=== PATIENT | male | born 1955 | race Caucasian/White ===

== ENCOUNTER 2017-12-29 07:01 | Outpatient (CLI) | payer OTHER ==
--- NOTE | 2017-12-29 10:50 | MRI ---
MRI RIGHT SHOULDER WITHOUT CONTRAST: HISTORY: Fall. M25.511, right shoulder pain. COMPARISON: None. FINDINGS: The exam is limited due to motion artifact. BICEPS TENDON: Mild extraarticular biceps tendon fluid. There is moderate intraarticular tendinosis. Mild blunting of the free edge of the superior labrum. ROTATOR CUFF: There is a full-thickness rupture of the anterior 1 cm fibers of the supraspinatus tendon retracted t o the mid humeral head. Evaluation for size is limited due to severe internal rotation on this exami nation. There is extensive tendinosis and interstitial tearing of the infraspinatus tendon. Moderat e subacromial/subdeltoid bursal effusion. BONES: Type I acromion. Mild degenerative disease of acromioclavicular joint. Normal glenoid eversion. SOFT TISSUES: There is loss of normal subcoracoid fat. There is significant hypertrophy within the rotator interva l. The axillary pouch is mildly thickened. Some of this thickening could be sequelae of the interna l rotation. MUSCLES: Muscle bulk is normal. No significant atrophy. IMPRESSION: 1. Full-thickness tear of the anterior 1 cm fibrous supraspinatus tendon from the footplate retracte d to the mid humeral head. 2. Severe tendinosis and interstitial tearing of the remaining posterior fibers supraspinatus tendon as well as at the infraspinatus tendon. 3. No significant muscle atrophy. 4. Moderate intraarticular biceps tendinosis as well as mild volume loss and blunting of the free ed ge of the superior labrum. 5. Rotator interval synovitis as well as thickening of the axillary pouch and glenohumeral ligament suggesting capsulitis. POS: OFF
== END 2017-12-29 07:02 | disposition home or self-care (01) ==
LOC: MRI 07:01
PROVIDERS: ATTEND Orthopaedic Surgery
DX: M25.511 Pain in right shoulder (principal); M75.101 Unspecified rotator cuff tear or rupture of right shoulder, not specified as traumatic; M75.21 Bicipital tendinitis, right shoulder; M75.81 Other shoulder lesions, right shoulder

== ENCOUNTER 2018-01-04 08:24 | Outpatient (CLI) | payer OTHER ==
[2018-01-04 09:03] LABS: Hemoglobin 16.8 g/dL (14.0-18.0); Mean Corpuscular HGB CONC 33.8 g/dL (32.0-36.0); Mean Corpuscular Hemoglobin 31.9 pg (27.0-31.0); Mean Corpuscular Volume 94.4 fl (80.0-94.0); Mean Platelet Volume 8.8 fL (7.4-10.4); Platelet Count 222 thou/uL (130-400); RBC Distribution Width 11.9 % (11.5-14.5); Red Blood Cell (RBC) Count 5.25 mill/uL (4.70-6.10)
== END 2018-01-04 08:25 | disposition home or self-care (01) ==
LOC: LABBT 08:24
PROVIDERS: ATTEND Orthopaedic Surgery
DX: Z01.818 Encounter for other preprocedural examination (principal); M75.101 Unspecified rotator cuff tear or rupture of right shoulder, not specified as traumatic
CPT/HCPCS: 85027; 93005; 93010

== ENCOUNTER 2018-01-05 08:17 | Day surgery (SDC) | payer OTHER ==
[2018-01-04 09:06] VITALS: BMI 24.3
[2018-01-05] MEDS ORDERED: CEFAZOLIN/Water 2 GM/20 ML SYRINGE ONE (08:33)
[2018-01-05] MEDS ORDERED: Ropivacaine 0.2% HCl/PF 20 ML ONE (08:58)
[2018-01-05] MEDS ORDERED: Midazolam HCl 2 mg/2 ml Vial ONE (08:58)
[2018-01-05] MEDS ORDERED: Fentanyl 100 MCG/2 ML VIAL ONE ×3 (08:58→10:11)
[2018-01-05] MEDS ORDERED: Scopolamine 1.5 mg/72 hour Patch ONE (09:29)
[2018-01-05] MEDS ORDERED: Ropivacaine 0.2% 550 ML 550 ML NERVE BLCK SCH (09:34)
[2018-01-05] MEDS ORDERED: HYDROcodone/Acetaminophen 10/325 mg Tablet PO PRN ×2 (09:34)
[2018-01-05] MEDS ORDERED: Promethazine HCl 25 MG/ML VIAL IM PRN (09:34)
[2018-01-05] MEDS ORDERED: traMADol HCl 50 MG TAB PO PRN ×2 (09:34)
[2018-01-05] MEDS ORDERED: Zolpidem Tartrate 5 MG TAB PO PRN (09:34)
[2018-01-05] MEDS ORDERED: Ondansetron PF 4 MG/2 ML Vial IVP PRN (09:34)
[2018-01-05] MEDS ORDERED: Fentanyl 100 MCG/2 ML VIAL IV PRN (09:35)
[2018-01-05] MEDS ORDERED: Lidocaine 1% w/Epinephrine 1:200K 30 ML VIAL ONE (09:37)
[2018-01-05] MEDS ORDERED: Bupivacaine 0.25% HCL 30 ML VIAL ONE (09:37)
[2018-01-05] MEDS ORDERED: Ketorolac Tromethamine 30 MG/ML VIAL IVP SCH (12:00)
--- NOTE | 2018-01-05 13:19 | OP ---
DATE OF PROCEDURE: 01/05/2018 PREOPERATIVE DIAGNOSIS: Right full-thickness supraspinatus tear with a leading edge infraspinatus tear. PROCEDURE PERFORMED: Right rotator cuff repair, double row, transosseous equivalent. STAFF: Sheldon Subramanian M.D. OPTOMETRIST PRESIDENT/PRACTICE OWNER: Brayden Sumner ANESTHESIA: Anesthesia staff is Gagandeep. The patient received general endotracheal intubation with interscalene block. ESTIMATED BLOOD LOSS: Less than 30 mL. TOURNIQUET TIME: None. IMPLANTS: An Arthrex 5.5 corkscrew x2, Arthrex SwiveLock 4.75 x2. ANTIBIOTICS: Ancef. COMPLICATIONS: None. HISTORY OF PRESENT ILLNESS: Mr. Brittney Carter is a 62-year-old male who is right hand dominant [employer]. The patient had a sack carrying, had a pop in his shoulder on the 15th of last year. The patient had night pain. Pain was rated 8-10. The patient had a full thickness rotator cuff repair. I discussed with patient the risks and benefits of right arthroscopic rotator cuff repair with possible biceps tenotomy tenodesis, subacromial decompression. The patient understood the risks and benefits of procedure to include pain, scar, bleeding, infection, damage to vital structures, decreased range or strength, failure of repair, continued pain despite surgical intervention, loss of life. The patient understood the risks and benefits and elected to proceed. PROCEDURE IN DETAIL: Timeout was performed designating the patient's right upper extremity as the operative site based on sites, consents and markings. After timeout, the patient had posterior working intraoral portal placed. Intra -articularly the patient had some frayed edges of his labrum. He had what was a degenerative sublabral foramen with degenerative changes, but the biceps root was intact, biceps tenotomy fraying or damage and I left it in place. Subscap was in place. He had no full thickness cartilage defects to his humerus or glenoid. The patient did have a large full-thickness cuff tear which I debrided well as intraarticularly to create a footprint. I then moved subacromially. I then again debrided the rotator cuff repair, taking a bur to create bleeding bone. I cleaned off the acromion, decompressed the shoulder. I then placed a lateral working portal for my visualization, then I placed my cannula back through my anterior portal. I placed one more anterolateral aspect of the acromion to pass stitches as well as past anchor. I placed 2 anchors, I placed my anchor anteriorly, passed 4 horizontal mattress sutures then placed more posterior to the same, tied posterior to anterior. I took my limbs and did a double row equivalent repair laterally. I was overall pleased with the opposition. We then washed and closed with 3-0 nylon. The patient will follow postop protocol; elbow, wrist, and hand motion until follow up. I discussed what to do with his catheter, made him short of breath, just sleep upright in the bed. He will take hydrocodone and give Zofran for pain relief. TL
[2018-01-05] MEDS ORDERED: Ropivacaine 0.2% HCl/PF (40 MG/20 ML VIAL) ONE (14:42)
[2018-01-05] MEDS ORDERED: Ropivacaine 0.5% HCl/PF (150 MG/30 ML VIAL) ONE (14:42)
[2018-01-05] MEDS ORDERED: Ketorolac Tromethamine 30 MG/ML VIAL ONE (15:03)
[2018-01-05] MEDS ORDERED: ePHEDrine/0.9% NaCl/PF SYRINGE 50 mg/10 ml ONE (15:03)
[2018-01-05] MEDS ORDERED: Ondansetron PF 4 MG/2 ML Vial ONE (15:03)
[2018-01-05] MEDS ORDERED: PROPOFOL 200 MG/20 ML VIAL ONE (15:03)
[2018-01-05] MEDS ORDERED: Glycopyrrolate 0.2 MG/ML 5 ML SYRINGE ONE (15:03)
[2018-01-05] MEDS ORDERED: PHENYLEPHRINE-NS 100 MCG/ML 10 ML SYRINGE ONE (15:03)
== END 2018-01-05 14:10 | disposition home or self-care (01) ==
LOC: SDC 08:17
PROVIDERS: ATTEND Orthopaedic Surgery
PROC: 0LM14ZZ Reattachment of Right Shoulder Tendon, Percutaneous Endoscopic Approach (ICD-10-PCS; principal; 2018-01-05)
DX: M75.121 Complete rotator cuff tear or rupture of right shoulder, not specified as traumatic (principal); Z88.8 Allergy status to other drugs, medicaments and biological substances; Z90.79 Acquired absence of other genital organ(s); Z98.890 Other specified postprocedural states; Z82.62 Family history of osteoporosis
CPT/HCPCS: A4306; C1713; J1885; J2250; J2405; J2704; J2795; J3010; S0020

== ENCOUNTER 2018-01-08 11:23 | Emergency (ER) | payer OTHER ==
[2018-01-08] MEDS ORDERED: Ondansetron HCl/PF 4 MG/2 ML Vial ONE (11:41)
[2018-01-08 11:50] LABS: #Basophils 0.1 thou/uL (0.0-0.2); #Eosinphils 0.1 thou/uL (0.0-0.7); #Lymphocytes 0.5 thou/uL (1.20-3.40); #Monocytes 0.6 thou/uL (0.11-0.59); #Neutrophils 10.8 thou/uL (1.40-6.50); %Basophils 1.1 % (0.0-1.0); %Eosinophils 0.5 % (0.0-10.0); %Lymphocytes 4.4 % (21.0-51.0); %Monocytes 4.7 % (0.0-10.0); %Neutrophils 89.3 % (42.0-75.0); Hemoglobin 16.3 g/dL (14.0-18.0); Mean Corpuscular HGB CONC 34.3 g/dL (32.0-36.0); Mean Corpuscular Hemoglobin 32.7 pg (27.0-31.0); Mean Corpuscular Volume 95.5 fl (80.0-94.0); Mean Platelet Volume 8.2 fL (7.4-10.4); Platelet Count 229 thou/uL (130-400); Red Blood Cell (RBC) Count 4.98 mill/uL (4.70-6.10); White Blood Cell (WBC) Count 12.1 thou/uL (4.8-10.8)
[2018-01-08 12:08] LABS: ALT (SGPT) 16 U/L (8-55); AST (SGOT) 24 U/L (5-34); Albumin 4.4 g/dL (3.4-4.8); Alkaline Phosphatase 68 U/L (40-150); Anion Gap 13 mmol/L (10-20); BUN (Urea Nitrogen) 8 mg/dL (8.4-25.7); Bilirubin, Total 0.7 mg/dL (0.2-1.2); Calc. Creatinine Clearance 0 mL/min (70-130); Calcium 9.8 mg/dL (7.8-10.44); Carbon Dioxide 24 mmol/L (23-31); Chloride 102 mmol/L (98-107); Estimated GFR-MDRD 87; Globulin 3.2 g/dL (2.4-3.5); Glucose 95 mg/dL (80-115); Potassium 4.1 mmol/L (3.5-5.1); Protein, Total 7.6 g/dL (5.8-8.1); Sodium 135 mmol/L (136-145)
--- NOTE | 2018-01-08 14:45 | RAD ---
SINGLE VIEW OF THE CHEST TWO VIEWS ABDOMEN: Comparison: None. History: Nausea, vomiting, and constipation. Patient has not had a bowel movement in two days. FINDINGS: Supine and upright views of the abdomen and upright views of the chest shows a nonspecific, nonobstru cted bowel gas pattern. There is a small amount of stool in the right colon. Air is seen throughout t he colon. A nonobstructed bowel gas pattern is seen. No free air or air fluid levels are seen on the upright examination. The cardiomediastinal silhouette is normal in size. There is no evidence of consolidation, mass, or p leural effusion. IMPRESSION: No evidence of acute obstruction or significant stool retention. POS: [facility]
[2018-01-08] MEDS ORDERED: Bisacodyl 10 MG SUPP PR SCH (15:00)
== END 2018-01-08 15:37 | disposition home or self-care (01) ==
LOC: ERS 11:23
DX: K59.03 Drug induced constipation (principal); R11.2 Nausea with vomiting, unspecified; T40.605A Adverse effect of unspecified narcotics, initial encounter; I10 Essential (primary) hypertension; E78.5 Hyperlipidemia, unspecified; F41.9 Anxiety disorder, unspecified; Z85.46 Personal history of malignant neoplasm of prostate
CPT/HCPCS: 36415; 74022; 80053; 85025; 96361; 96374; J2405